=== PATIENT | male | born 1995 | race Caucasian/White ===

== ENCOUNTER 2021-04-24 00:55 | Emergency (ER) | payer OTHER, BC, SELFPAY ==
[2021-04-24 00:57] VITALS: BP 154/92; PULSE 93; RESP 16; TEMP 36.3; O2SAT 98; BMI 24.7
--- NOTE | 2021-04-24 01:02 | RAD_ITS ---
STUDY: X-RAY - RIGHT FOOT CLINICAL: Male, 25 years old. Posttraumatic facial pain TECHNIQUE: 3 view(s) of the foot. COMPARISON: None. FINDINGS: Normal talus, calcaneus, and tarsal bones. Normal visualized subtalar, talonavicular, calcaneocuboid, tarsal and tarsometatarsal articulations. Normal metatarsi. Normal metatarsophalangeal joint of the great toe. Normal tibial and fibular sesamoid bones. Normal interphalangeal joint of the great toe. Normal phalanges of the great toe. Normal second through fifth metatarsophalangeal joints. Normal interphalangeal joints and phalanges of the lesser toes. The soft tissue structures are unremarkable. RAD/Foot min 3 Views IMPRESSION: Normal x-ray examination of the foot. Electronically Signed: Dick Cartagena MD at 2:00 EST Tel , Service support ,
--- NOTE | 2021-04-24 01:02 | RAD_ITS ---
STUDY: X-RAY - RIGHT ANKLE REASON FOR EXAM: Male, 25 years old. Posttraumatic right ankle pain TECHNIQUE: 3 view(s) of the ankle. COMPARISON: None. FINDINGS: Normal visualized distal tibia and fibula. Normal medial and lateral malleoli. Normal tibiotalar articulation and ankle mortise. Normal visualized talus and calcaneus. The visualized subtalar, talonavicular, calcaneocuboid and tarsal articulations are normal. The soft tissue structures are unremarkable. RAD/Ankle min 3 Views IMPRESSION: Normal x-ray examination of the ankle. Electronically Signed: Dick Cartagena MD at 2:01 EST Tel , Service support ,
--- NOTE | 2021-04-24 01:04 | ED.VIS.LOWEX ---
HPI History of Present Illness Chief Complaint: Lower Extremity Injury Informant: patient Onset/Context/Timing Onset: Today Context: Gradual Onset Current Severity: Mild Maximum Severity: Mild Narrative Narrative: Patient presents after rolling his right ankle at work tonight. Patient please he stepped on the edge of a board and lost his balance rolling his ankle. He was wearing work boots at the time. He was able to ambulate in putting weight on his heel. He denies any other injury. PFSH PFSH Medical History no medical history no medical history Home Medications NK 04/24/21 [History Last Taken Unknown] Allergy/AdvReac Type Severity Reaction Status Date / Time Penicillins Allergy Rash Verified 04/24/21 00:56 Surgical History no surgical history Social History Smoking Status: Never smoker ROS ROS ED Constitutional Constitutional ED: Denies chills or fever(s) Eyes Eyes: Denies change in vision ENT ENT ED: Denies rhinorrhea or sore throat Cardiovascular Cardiovascular: Denies chest pain Respiratory/Chest Respiratory/Chest: Denies cough or dyspnea Gastrointestinal Gastrointestinal: Denies abdominal pain, diarrhea or vomiting Musculoskeletal Musculoskeletal: Reports arthralgias Integumentary Denies Abrasions or rash Neurologic Neurologic: Denies paresthesias or weakness Allergic/Immunologic Allergic/Immunologic ED: Denies urticaria EXAM Physical Exam Const Vital Signs: 04/24/21 00:57 Temperature 97.4 F L Temperature Source Temporal Pulse Rate 93 Respiratory Rate 16 Blood Pressure 154/92 H Blood Pressure Mean 112 Pulse Ox 98 Positive well nourished and well developed General Appearance ED: well developed HEENT normocephalic Eyes PERRL Chest Wall inspection of chest normal and palpation of chest normal Resp normal respiratory effort and clear to auscultation bilaterally Cardio regular rate and regular rhythm GI non-tender Palpation: soft Extremity Extremity Narrative: Mild tenderness to the lateral malleolus of the right ankle. Focal area of edema and tenderness along the lateral midfoot. Strong distal pulses with good cap refill. No tenderness of the proximal fibula. Neuro oriented x3 Sensorium / Orientation: alert Skin Rashes: no rashes MDM MDM MDM Narrative Medical decision making narrative: Patient given naproxen for pain. X-rays of the right ankle and right foot obtained. Radiography Diagnostic Testing: Clinical Impression(s) from Imaging Studies Ankle X-Ray 04/24/21 01:02 IMPRESSION: Normal x-ray examination of the ankle. Electronically Signed: Dick Cartagena MD at 2:01 EST Tel , Service support , Foot X-Ray 04/24/21 01:02 IMPRESSION: Normal x-ray examination of the foot. Electronically Signed: Dick Cartagena MD at 2:00 EST Tel , Service support , Treatment and Re-Evaluation Comments:: X-rays unremarkable. Alonso wrap applied to the right ankle and foot. [facility] Discharge Plan Triage Chief Complaint: Lower Extremity Injury ED Provider: Maria Fernanda Browne Dx/Rx/DC Orders Clinical Impression: Right ankle sprain Instructions: ED Ankle Sprain (Adult) Prescriptions: No Action NK RF: 0 Stand Alone Forms: Work Status Form Primary Care Provider: Care Physician,No Primary Referrals: Corporate,Care [GROUP OF PHYSICIANS] - 3-5 Days Care Physician,No Primary [Primary Care Provider] - Disposition Disposition: Home, Self Care
[2021-04-24] MEDS: Naproxen 500 MG Tablet PO (01:13)
--- NOTE | 2021-04-24 02:07 | ED.RN ---
WAS ASKED TO CALL IN CORPORATE CARE FOR THIS PATIENT, CALLED AND TALKED TO NEEMA AT 12:47 AM AND TOLD HER THAT I HAD A PATIENT WITH INJURY THAT NEEDED TO BE SCREENED. 1:45 AM I CALLED NEEMA AGAIN AND WAS NO ANSWER AND LEFT A VOICEMAIL, I CALLED AGAIN AT 1:54AM, CALLED 1:57AM CALLED AGAIN NO ANSWER, 2:02 CALLED AGAIN AND NO ANSWER, 2:07 CALLED AGAIN AND NO ANSWER. I CALLED JON WHO IS NOT AIR CONDITIONING SERVICE TECHNICIAN AND SHE ADVISED TO SEND HIM TO THE [facility] AT 0700 SINCE WE CANT GET A HOLD OF HER.
== END 2021-04-24 02:24 | disposition home or self-care (01) ==
LOC: ED 02:23
PROVIDERS: Emergency Provider Emergency Medicine
DX: S93.401A Sprain of unspecified ligament of right ankle, initial encounter (principal); X50.1XXA Overexertion from prolonged static or awkward postures, initial encounter; Y93.89 Activity, other specified; Y92.9 Unspecified place or not applicable; Y99.9 Unspecified external cause status
CPT/HCPCS: 73610; 73630; 99283

== ENCOUNTER 2024-09-11 02:40 | Emergency (ER) | payer BC, SELFPAY ==
[2024-09-11 02:42] VITALS: BP 161/86; PULSE 102; RESP 18; TEMP 37.3; O2SAT 98; BMI 26.4
--- NOTE | 2024-09-11 02:57 | EX.ED.DYSGE1 ---
HPI History of Present Illness Chief Complaint: Other, Pain/Inj Informant: patient Narrative Narrative: Patient is a 29-year-old with no reported significant past medical history. He states that he had sexual intercourse the other day. He states he did wear a condom. He reports however a few hours after intercourse he noticed he was having increased urinary frequency. He states there is no discharge or dysuria. He denies any hematuria. He states that he does not have testicular pain or swelling or skin lesions. He does admit to previous history of chlamydia and states this feels similar nature to how the chlamydia infection began. Therefore with concern for exposure to STD he presents for evaluation [facility] Medical History no medical history no medical history Home Medications ?Medication ?Instructions ?Recorded ?Last Taken ?Type doxycycline hyclate 100 mg capsule 100 mg PO BID 7 days #14 caps 09/11/24 Unknown Rx Allergy/AdvReac Type Severity Reaction Status Date / Time Penicillins Allergy Rash Verified 09/11/24 02:45 Social History Smoking Status: Never smoker ROS ROS ED Constitutional Constitutional ED: Denies chills or fever(s) ENT ENT ED: Denies sore throat Cardiovascular Cardiovascular: Denies chest pain Respiratory/Chest Respiratory/Chest: Denies cough or dyspnea Gastrointestinal Gastrointestinal: Denies abdominal pain, diarrhea, nausea or vomiting Genitourinary Genitourinary ED: Reports urinary frequency; Denies dysuria or hematuria Musculoskeletal Musculoskeletal: Denies back pain Integumentary Denies rash Neurologic Neurologic: Denies headache(s) Hematologic/Lymphatic Hematologic/Lymphatic: Denies easy bleeding or easy bruising EXAM Physical Exam Const Vital Signs: 09/11/24 02:42 09/11/24 02:46 Temperature 99.1 F Temperature Source Oral Pulse Rate 102 H Respiratory Rate 18 Respiratory Effort Normal Respiratory Pattern Normal Blood Pressure 161/86 H Blood Pressure Mean 111 Pulse Ox 98 Oxygen Delivery Method Room Air Positive well nourished and well developed General Appearance ED: well developed; Negative for pallor HEENT HEENT Narrative: Normocephalic atraumatic Eyes PERRL and EOMs intact bilaterally General Eye ED: Negative for scleral icterus Neck supple Resp normal respiratory effort and clear to auscultation bilaterally Cardio regular rate and regular rhythm GI normal to inspection, nondistended, normoactive bowel sounds, non-tender, non-distended and no masses GI Narrative: No suprapubic tenderness to palpation No organomegaly to suggest acute urinary retention Auscultation: normoactive bowel sounds Palpation: soft Narrative: Patient deferred Back/Spine no CVA tenderness Extremity normal to inspection Neuro oriented x3, CN's II-XII intact bilaterally and no sensory deficits noted Sensorium / Orientation: alert Motor Exam: strength 5/5 throughout Psych mental status grossly normal Skin no rashes or lesions noted General Skin Exam: Negative for jaundice or pallor MDM MDM MDM Narrative Medical decision making narrative: Patient arrived to the ER hypertensive but otherwise with stable vitals. He reported urinary frequency after sexual intercourse. He denies skin lesions to suggest herpetic infection and he denies any testicular pain or swelling to suggest epididymitis mumps orchitis or a chancre and potential syphilis. At this time with concern for gonorrhea and chlamydia as the most common likelihood of his symptoms a urine sample will be obtained but with potential exposure he will be treated with Rocephin and doxycycline. As he does not have signs of urinary retention/obstruction either I have no need to evaluate further in the ER with further testing or imaging and he is otherwise safe for discharge History & Record Review Discussion w/independent historian: Patient Discharge Plan Triage Chief Complaint: Other, Pain/Inj ED Provider: Julian Fernandes Dx/Rx/DC Orders Clinical Impression: Possible exposure to STD, Hypertension Instructions: STI Prescriptions: New doxycycline hyclate 100 mg capsule 100 mg PO BID 7 Days Qty: 14 0RF Primary Care Provider: Care Physician,No Primary Referrals: Keegan Felix MD [Med Staff - Active Staff] - Care Physician,No Primary [Primary Care Provider] - Activity Restrictions/Additional Instructions: You have been treated for gonorrhea and chlamydia. Please refrain from sexual activity for the next 7 days and return to the ER should you have any further concerns or worsening of symptoms. Print Language: Angolan Disposition Disposition: Home, Self Care
[2024-09-11] MEDS: Doxycycline 100 MG CAPSULE PO (03:24)
[2024-09-11] MEDS: Ceftriaxone 500 MG Vial IM (03:24)
[2024-09-11 04:49] VITALS: BP 144/62; PULSE 90; RESP 18; TEMP 37.2; O2SAT 98
[2024-09-11 04:59] LABS: Glucose, Dipstick Normal (Normal); Ketone-Dipstick Negative (Negative); Leukocyte Esterase-Dipstick Negative /ul (Negative); Nitrite-Dipstick Negative (Negative); Occult Blood-Urine 25 /ul (Negative); Protein-Dipstick 15 mg/dl (Negative); Specific Gravity, Urine 1.015 (1.002-1.030); Urine Bilirubin Dipstick Negative (Negative); Urine Urobilinogen Normal (Normal)
[2024-09-11 05:17] LABS: Color, Urine Yellow (Yellow); Urine Clarity Clear (Clear)
[2024-09-11 05:19] LABS: Amorphous Sediment 1+; Bacteria 1+ /hpf (None Seen); Mucous, Urine 1+ /hpf (<or=2+); Red Blood Cells-Urine 0-5 SEEN /hpf (0-5); Squamous Epithelial Cells - UA 0-5 SEEN /hpf (0-5); White Blood Cells 0-5 SEEN /hpf (0-5)
== END 2024-09-11 04:50 | disposition home or self-care (01) ==
PROVIDERS: Emergency Provider Emergency Medicine; Visit Provider Emergency Medicine
DX: R35.0 Frequency of micturition (principal); Z11.3 Encounter for screening for infections with a predominantly sexual mode of transmission; I10 Essential (primary) hypertension; Z86.19 Personal history of other infectious and parasitic diseases
CPT/HCPCS: 81001; 87491; 87591; 96372; 99282